=== PATIENT | male | born 1995 | race Caucasian/White ===

== ENCOUNTER 2016-06-27 11:44 | Emergency (ER) | payer OTHER ==
[2016-06-27 11:49] VITALS: BP 132/80; PULSE 87; RESP 16; TEMP 98.2; O2SAT 94
[2016-06-27] MEDS ORDERED: CEPHALEXIN 500 MG CAP PO ONE (12:24)
--- NOTE | 2016-06-27 12:24 | EDPHY ---
H & P Time Seen by Provider: 06/27/16 12:17 HPI/ROS: CHIEF COMPLAINT: Multiple hand lacerations after punching TV HISTORY OF PRESENT ILLNESS: 21-year-old [id number] male punched a television set last night at approximately 11:00 p.m.. The glass broke. He sustained multiple laceration to his right hand. Tetanus is up-to-date. Denies paresthesia or sensory or motor deficit. Denies foreign body sensation. PHYSICAL EXAM (Prior to examination, patient consented to physical exam, hands were washed and my usual and customary physical exam procedures followed) 1) GENERAL: Well-developed, well-nourished, alert and oriented. Appears to be in no acute distress. 2) HEAD: Normocephalic 3) HEENT: sclera anicteric 4) LUNGS: Breathing comfortably. 5) SKIN: on the patient's right 4th MCP dorsal aspect he has a flap laceration measuring 2.5 cm. On the patient's right 5th proximal phalanx dorsal aspect he has a 2 cm laceration. 6) MUSCULOSKELETAL: flexor and extensor function grossly intact at the MCP PIP D IP of the affected digits. There is no malrotation no shortening normal cascading of digits. No visible or palpable foreign body. No signs of infection. Negative kanavel. 7) NEUROLOGIC: Full sensation Smoking Status: Never smoked Constitutional: Initial Vital Signs Temperature (C) 36.8 C 06/27/16 11:46 Heart Rate 87 06/27/16 11:46 Respiratory Rate 16 06/27/16 11:46 Blood Pressure 132/80 H 06/27/16 11:46 O2 Sat (%) 94 06/27/16 11:46 O2 Delivery Mode Room Air Allergies/Adverse Reactions: No Known Allergies Allergy (Verified 06/27/16 11:45) Home Medications: Medication Instructions Recorded Albuterol 05/29/16 Fluticasone/Salmeter 250/50Mcg 05/29/16 [Advair 250/50 (*)] Cephalexin [Keflex] 500 mg PO QID 5 Days 06/27/16 ED Images - Extremities Hands Back Left/Right: 1 - Laceration 2 - Laceration MDM/Departure - MDM Diagnostics: Right Hand, 3 Views, at 12:27 p.m. Clinical History: 21-year-old male who punched a TV, and sustained a hand laceration. Comparison Study: None. Findings: There is a soft tissue laceration at the level of the 5th metacarpal phalangeal joint, extending to the proximal phalanx of the 5th digit. There is no associated fracture or radiopaque foreign body. The MCP joint is still anatomically-aligned. Impression: Soft tissue laceration epicentered near the 5th MCP joint, with no underlying acute osseous abnormality. Dictated By: Emre Lee MD Images reviewed by myself Procedures: Procedure: Laceration repair. I explained the indications, risks and benefits for both laceration repair and anesthetic administration. Verbal consent was obtained from the patient . The laceration on the right hand was anesthetized using 0.5% bupivicaine without epinephrine . After anesthetic administered the patient was observed for a period of time and had no apparent adverse effects. The wound was cleaned, prepped, draped in normal sterile fashion and explored to its base. No foreign body seen, no foreign bodies palpated. There were no deep structures involved. No tendon injury was identified. Each wound repaired with 4 simple interrupted 5 O Prolene sutures for a total of 8 sutures. The wound repair was complex. The procedure was performed by myself. Patient has been informed that scarring will occur, although efforts have been made to minimize this. Medications Given: Discontinued Medications Cephalexin HCl (Keflex) 500 mg PO EDNOW ONE PRN Reason: Protocol Stop: 06/27/16 12:25 Last Admin: 06/27/16 13:00 Dose: 500 mg ED Course/Re-evaluation: Patient has been informed that because of his delay in seeking care this may result in improper healing. He has been informed that occult extensor tendon is not ruled out other no gross deficits on exam seen. I have recommend follow up with on-call hand surgery. Sutures to be removed in 10 days. Started on prophylactic antibiotics. He has no signs of infection at this time. No radiopaque foreign bodies on x-ray. - Depart Disposition: Home, Routine, Self-Care Clinical Impression: Hand laceration Condition: Good Instructions: Laceration (ED) Additional Instructions: Return to the ER if you develop redness, swelling, discharge, warmth to the wound, red streaks going up your arm or any other symptoms that concern you. Prescriptions: Cephalexin [Keflex] 500 mg PO QID 5 Days Referrals: Chris Ahuja MD [Medical Doctor] - 2-3 days, call for appt. (Dr. Chris Ahuja is a hand surgeon)
--- NOTE | 2016-06-27 12:51 | DX ---
Right Hand, 3 Views, at 12:27 p.m. Clinical History: 21-year-old male who punched a TV, and sustained a hand laceration. Comparison Study: None. Findings: There is a soft tissue laceration at the level of the 5th metacarpal phalangeal joint, exte nding to the proximal phalanx of the 5th digit. There is no associated fracture or radiopaque foreign body. The MCP joint is still anatomically-aligned. Impression: Soft tissue laceration epicentered near the 5th MCP joint, with no underlying acute osseo us abnormality.
== END 2016-06-27 13:58 | disposition home or self-care (01) ==
PROC: 0HQFXZZ Repair Right Hand Skin, External Approach (ICD-10-PCS; principal; 2016-06-27)
DX: S61.212A Laceration without foreign body of right middle finger without damage to nail, initial encounter (principal); S61.214A Laceration without foreign body of right ring finger without damage to nail, initial encounter; W22.8XXA Striking against or struck by other objects, initial encounter
CPT/HCPCS: L3925